=== PATIENT | male | born 1965 | race Hispanic/Latino ===

== ENCOUNTER 2018-11-08 10:30 | Outpatient (CLI) | payer OTHER ==
--- NOTE | 2018-11-08 11:50 | RAD ---
CERVICAL SPINE 4 VIEWS: HISTORY: Cervicalgia. No injury. COMPARISON: None. FINDINGS: Lateral radiograph is limited due to the shoulders. Therefore, the evaluation is limited due to leve l of C4. There appears to be osseous fusion of th eC3-4 vertebral bodies. Severe degenerative disea se of the C4-5 disk space with large anterior and posterior disk-osteophyte complex, likely a degree of spinal canal narrowing. There is fusion of the posterior elements of C3 and C4. No acute fracture is appreciated. IMPRESSION: Limited examination due to the shoulders in the field of view, although there are severe degenerative changes at C4-5 likely due to sequelae of C3-4 anterior and posterior element fusion. MRI recommend ed. Likely a degree of central spinal canal narrowing due to a large posterior disk-osteophyte compl ex at C4-5. POS: [facility]
--- NOTE | 2018-11-08 11:57 | RAD ---
LUMBAR SPINE 4 VIEWS: HISTORY: Low back pain. COMPARISON: None. FINDINGS: There is a moderate dextroscoliosis lumbar spine. Five [id number] lumbar-type vertebrae. Large anterior flowing osteophytes at L3-4 and L4-5. Paraspinal soft tissues are unremarkable. SI joints are normal. Moderate facet arthropathy at L4-5 and L5-S1. IMPRESSION: Moderate dextroscoliosis with subsequent degenerative changes. No acute fracture. POS: [facility]
== END 2018-11-08 10:31 | disposition home or self-care (01) ==
LOC: BICRAD 10:30
PROVIDERS: ATTEND Chiropractor
DX: M54.5 Low back pain (principal); M54.2 Cervicalgia; M47.816 Spondylosis without myelopathy or radiculopathy, lumbar region; M47.812 Spondylosis without myelopathy or radiculopathy, cervical region
CPT/HCPCS: 72050; 72110

== ENCOUNTER 2019-02-25 19:47 | Emergency (ER) | payer OTHER, SELFPAY ==
[2019-02-25] MEDS ORDERED: HYDROcodone/Acetaminophen 5/325 mg Tablet ONE (21:00)
[2019-02-25] MEDS ORDERED: Ketorolac Tromethamine 60 MG/2 ML VIAL ONE (21:00)
--- NOTE | 2019-02-25 21:36 | RAD ---
LEFT HIP TWO VIEWS: HISTORY: Hip pain. FINDINGS: No evidence of fracture. Femoral head contour is normal. No significant degenerative change. IMPRESSION: Unremarkable left hip. POS: [facility]
== END 2019-02-25 22:00 | disposition home or self-care (01) ==
LOC: ERS 19:47
DX: M54.42 Lumbago with sciatica, left side (principal); E11.9 Type 2 diabetes mellitus without complications; F41.9 Anxiety disorder, unspecified; I10 Essential (primary) hypertension; Z79.84 Long term (current) use of oral hypoglycemic drugs
CPT/HCPCS: 96372; J1885

== ENCOUNTER 2019-05-20 09:30 | Emergency (ER) | payer SELFPAY ==
[2019-05-20] MEDS ORDERED: Ketorolac Tromethamine 30 MG/ML VIAL ONE (10:27)
[2019-05-20 10:30] LABS: #Eosinphils 0.1 thou/uL (0.0-0.7); #Lymphocytes 1.6 thou/uL (1.20-3.40); #Monocytes 0.8 thou/uL (0.11-0.59); #Neutrophils 10.9 thou/uL (1.40-6.50); %Basophils 0.3 % (0.0-1.0); %Eosinophils 1.1 % (0.0-10.0); %Lymphocytes 12.1 % (21.0-51.0); %Monocytes 5.9 % (0.0-10.0); %Neutrophils 80.7 % (42.0-75.0); Hemoglobin 14.3 g/dL (14.0-18.0); Mean Corpuscular HGB CONC 34.5 g/dL (32.0-36.0); Mean Corpuscular Hemoglobin 31.2 pg (27.0-31.0); Mean Corpuscular Volume 90.6 fL (78.0-98.0); Mean Platelet Volume 7.5 fL (7.4-10.4); Platelet Count 336 thou/uL (130-400); RBC Distribution Width 12.8 % (11.5-14.5); Red Blood Cell (RBC) Count 4.59 mill/uL (4.70-6.10); White Blood Cell (WBC) Count 13.6 thou/uL (4.8-10.8)
[2019-05-20 10:50] LABS: ALT (SGPT) 22 U/L (8-55); AST (SGOT) 19 U/L (5-34); Albumin 4.3 g/dL (3.5-5.0); Alkaline Phosphatase 103 U/L (40-150); Anion Gap 11 mmol/L (10-20); BUN (Urea Nitrogen) 10 mg/dL (8.4-25.7); Calc. Creatinine Clearance 0 mL/min (70-130); Calcium 9.1 mg/dL (7.8-10.44); Carbon Dioxide 25 mmol/L (22-29); Chloride 104 mmol/L (98-107); Estimated GFR-MDRD Greater than 90; Globulin 2.5 g/dL (2.4-3.5); Glucose 98 mg/dL (70-105); Potassium 4.1 mmol/L (3.5-5.1); Protein, Total 6.8 g/dL (6.0-8.3); Sodium 136 mmol/L (136-145)
[2019-05-20 10:57] LABS: Bilirubin Negative (Negative); Blood, Urine Large (Negative); Glucose, Urine (Dipstick) Negative (Negative); Leukocyte Moderate (Negative); Nitrite Negative (Negative); Protein, Urine (Dipstick) Negative (Neg-Trace); Urobilinogen 0.2 mg/dL (Less than 2)
[2019-05-20 10:58] LABS: Clarity Hazy (Clear)
[2019-05-20 11:07] LABS: Squamous Epithelial 0-3 HPF (0-3); WBC/HPF Greater Than 50 HPF (0-3)
[2019-05-20 11:08] LABS: Bacteria/HPF Rare-Few HPF (None Seen)
--- NOTE | 2019-05-20 11:22 | CT ---
CT ABDOMEN AND PELVIS WITHOUT CONTRAST: HISTORY: Hematuria. Left groin and flank pain. COMPARISON: None. FINDINGS: Mild atelectasis of the left lung base. No pericardial effusion. There are multiple splenules. The left kidney is severely atrophic measuring less than 3 cm in size with left hydroureter and some left periureteral stranding. No distal left ureteral calculus is appr eciated. There is compensatory enlargement of the right kidney. No right-sided hydroureteral nephrosis or nep hroureterolithiasis. Noncontrast evaluation of the liver, gallbladder, and pancreas unremarkable. Mild atherosclerotic pl aque of the aorta. Small fat-containing left direct inguinal hernia. High-grade facet arthropathy of the lower lumbar s pine. IMPRESSION: 1. Severe atrophy kidney measuring less than 3 cm in craniocaudal dimension with mild left hydrouret er and periureteral stranding without distal obstructing calculus. This may reflect a distal uretera l stricture or nonvisualized mass. Urologic consultation may be beneficial. 2. Superficial skin and subcutaneous fat thickening along the lower abdominal wall likely injection related. 3. Compensatory hypertrophy of the right kidney without hydroureteral nephrosis or nephroureterolith iasis. 4. 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 POS: [facility]
== END 2019-05-20 14:42 | disposition home or self-care (01) ==
LOC: ERS 09:30
DX: N39.0 Urinary tract infection, site not specified (principal); N26.1 Atrophy of kidney (terminal); I10 Essential (primary) hypertension; E11.9 Type 2 diabetes mellitus without complications; F41.9 Anxiety disorder, unspecified; Z79.4 Long term (current) use of insulin; Z79.899 Other long term (current) drug therapy
CPT/HCPCS: 36415; 74176; 80053; 81003; 81015; 85025; 87077; 87086; 87186; 96361; 96374; J1885

== ENCOUNTER 2024-06-13 09:59 | Emergency (ER) | payer BC, SELFPAY ==
[2024-06-13 10:42] LABS: #Basophils 0.04 10x3/uL (0.0-0.2); %Basophils 0.4 % (0.0-1.0); %Eosinophils 3.1 % (0.0-10.0); %Lymphocytes 17.9 % (21.0-51.0); %Monocytes 6.5 % (0.0-10.0); %Neutrophils 71.7 % (42.0-75.0); Hematocrit 42.7 % (42.0-52.0); Hemoglobin 14.9 g/dL (14.0-18.0); Mean Corpuscular HGB CONC 34.9 g/dL (32.0-36.0); Mean Corpuscular Hemoglobin 29.8 pg (27.0-31.0); Mean Corpuscular Volume 85.4 fL (78.0-98.0); Mean Platelet Volume 9.6 fL (7.4-10.4); Platelet Count 374 10x3/uL (130-400); RBC Distribution Width 15.1 % (11.5-14.5)
[2024-06-13 11:23] LABS: ALT (SGPT) 49 U/L (8-55); AST (SGOT) 39 U/L (5-34); Albumin 3.9 g/dL (3.5-5.0); Alkaline Phosphatase 112 U/L (40-110); Anion Gap 15 mmol/L (10-20); BUN (Urea Nitrogen) 12 mg/dL (8.4-25.7); Bilirubin, Total 0.5 mg/dL (0.2-1.2); Calc. Creatinine Clearance 0 mL/min (70-130); Calcium 9.3 mg/dL (7.8-10.44); Carbon Dioxide 23 mmol/L (22-29); Chloride 105 mmol/L (98-107); Estimated GFR 106; Globulin 2.9 g/dL (2.4-3.5); Glucose 50 mg/dL (70-105); Potassium 3.2 mmol/L (3.5-5.1); Protein, Total 6.8 g/dL (6.0-8.3); Sodium 140 mmol/L (136-145)
[2024-06-13] MEDS ORDERED: Potassium Chloride 20 MEQ TAB ONE (11:30)
[2024-06-13 11:53] LABS: Troponin I 0.012 ng/mL (< 0.028)
[2024-06-13] MEDS ORDERED: Dextrose 50% Abboject 50 ML SYRINGE SLOW IVP SCH (12:15)
== END 2024-06-13 13:00 | disposition home or self-care (01) ==
LOC: ERS 09:59
DX: E11.649 Type 2 diabetes mellitus with hypoglycemia without coma (principal); I10 Essential (primary) hypertension
CPT/HCPCS: 36415; 36416; 71045; 80053; 84484; 85025; 87428; 93005; 96374; J7999